=== PATIENT | male | born 1940 | race African-American/Black ===

== ENCOUNTER → 2018-09-11 | Outpatient (CLI) | payer MEDICARE, MEDICAID ==
[~2018-09-11] MED LIST: ACET-1156 PO; ACET-6 PO; ASCO-22 PO; ASPI81CH43 PO; ATOR10TA52 PO; BIS10RS PR; CALC0.25 PO; CHOL100046 PO; CHOL20007 OR; CLOP75TA28 PO; DOCU100T15 PO; HYDR-4683 PO; HYDR200T36 PO; LEVO50TA7 PO; MAGN400S25 PO; METO-158 PO; MIRT15TA PO; NITR0.4S29 SL; ONDA4TAB5 PO; OXYB15TA12 PO; OXYB5TAB61 PO; PANT40TA2 PO; SIMV-8 PO; SODIENE35 RE
[2018-09-11 09:00] VITALS: BP 124/63
[2018-09-11 09:25] VITALS: BP 100/52
[2018-09-11 12:31] LABS: BUN/Creatinine Ratio 14.3; Calcium 8.5 mg/dL (8.5-10.1)
[2018-09-11 12:41] LABS: INR 0.96 (0.9-1.15); Partial Thromboplastin Time 29.5 sec (23.78-33.04); Prothrombin Time 10.3 sec (9.27-12.13)
[2018-09-11 12:44] LABS: Basophils # (auto) 0.1 uL; Basophils % (auto) 1.1 % (0.0-2.0); Eosinophils # (auto) 0.2 uL; Eosinophils % (auto) 2.9 % (0.0-7.0); Hematocrit 37.6 % (41.0-53.0); Hemoglobin 12.2 g/dL (13.5-17.5); Lymphocytes # (auto) 1.7 uL; Lymphocytes % (auto) 28.9 % (10.0-50.0); Mean Corpuscular Hemoglobin 29.4 pg (28.0-32.0); Mean Corpuscular Hgb Conc. 32.4 g/dL (32.0-36.0); Mean Corpuscular Volume 90.9 fL (80.0-100.0); Monocytes # (auto) 0.5 uL; Monocytes % (auto) 8.7 % (0.0-12.0); Neutrophils # (auto) 3.5 uL; Neutrophils % (auto) 58.4 % (37.0-80.0); Nucleated Red Blood Cells % 0.2 %; Platelet Count (auto) 224 10^3/uL (140-450); Red Blood Cells 4.13 10^6/uL (4.5-5.90); Red Cell Distribution Width 14.7 % (11.8-14.3)
== END | disposition home or self-care (01) ==
LOC: Rad HDHVI 08:34
PROVIDERS: ATTEND Internal Medicine Cardiovascular Disease
DX: Z01.818 Encounter for other preprocedural examination (principal); J98.11 Atelectasis; D64.9 Anemia, unspecified; R79.1 Abnormal coagulation profile; I10 Essential (primary) hypertension
CPT/HCPCS: 36415; 71046; 80048; 85025; 85610; 85730; 93005; G0463

== ENCOUNTER 2018-10-25 07:38 | Inpatient (IN) | payer MEDICARE, MEDICAID | END 2018-10-26 21:01 | LOC: CATH 07:38 → TELE-WESTW 19:52 | PROC: 027034Z Dilation of Coronary Artery, One Artery with Drug-eluting Intraluminal Device, Percutaneous Approach (ICD-10-PCS; principal; ~2018-10-25) | PROC: B2111ZZ Fluoroscopy of Multiple Coronary Arteries using Low Osmolar Contrast (ICD-10-PCS; ~2018-10-25) | DX: I24.9 Acute ischemic heart disease, unspecified (principal); I25.110 Atherosclerotic heart disease of native coronary artery with unstable angina pectoris ==

== ENCOUNTER → 2018-11-07 | Outpatient (CLI) | payer MEDICARE, MEDICAID ==
[~2018-11-07] MED LIST changes: -ACET-1156 PO; -CALC0.25 PO; -CHOL100046 PO; -OXYB15TA12 PO; -SIMV-8 PO
== END | disposition home or self-care (01) ==
LOC: Rad HDHVI 10:57
PROVIDERS: ATTEND Internal Medicine Cardiovascular Disease
DX: I20.0 Unstable angina (principal); I63.9 Cerebral infarction, unspecified; I25.5 Ischemic cardiomyopathy
CPT/HCPCS: 93306